=== PATIENT | male | born 2000 | race Caucasian/White ===

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

== ENCOUNTER 2025-01-04 15:57 | Emergency (ER) | payer MEDICAID | END 2025-01-04 17:55 | disposition home or self-care (01) | LOC: VM.ED 15:57 | DX: S01.01XA Laceration without foreign body of scalp, initial encounter (principal); Z79.899 Other long term (current) drug therapy; W18.09XA Striking against other object with subsequent fall, initial encounter | CPT/HCPCS: 70450; 99284 ==